=== PATIENT | female | born 1995 | race Asian ===

== ENCOUNTER 2017-09-29 13:40 | Emergency (ER) | payer OTHER ==
[~2017-09-29] VITALS: Ht 149.9 cm; Wt 59.1 kg
[2017-09-29 13:45] VITALS: TEMP 99.1
[2017-09-29] MEDS ORDERED: PRENATAL FORMU1 EAC3 PO (13:47)
[2017-09-29 14:38] LABS: BASO # 0.1 (0.0-0.2); BASO % 0.6 % (0.0-2.0); EOS # 0.1 (0.0-0.7); EOS % 1.5 % (0-4.0); GRAN # 5.7 (1.4-6.5); GRAN % 65.5 % (42.2-75.2); HEMATOCRIT 41.1 % (37.0-47.0); HEMOGLOBIN 13.4 g/dl (12.5-16.0); LYMPH # 1.9 (1.2-3.4); LYMPH % 22.2 % (20.0-51.0); MEAN CELL VOLUME 83 fl (80.0-100.0); MEAN CORPUSCULAR HEMOGLOBIN 27 pg (27.0-31.0); MEAN CORPUSCULAR HGB CONC 33 g/dl (33.0-37.0); MEAN PLATELET VOLUME 11.3 fl (7.4-10.4); MONO # 0.9 (0.1-0.6); MONO % 9.9 % (1.7-9.3); PLATELET COUNT 250 K/mm3 (130-400); RED BLOOD COUNT 4.94 M/mm3 (4.10-5.30); REDCELL DISTRIBUTION WIDTH-CV 13.9 % (11.5-14.5)
[2017-09-29 16:06] LABS: COLLECTION METHOD CLEAN CATCH
[2017-09-29 16:15] LABS: ALBUMIN 4.4 gm/dL (3.5-5.0); BILIRUBIN,TOTAL 0.3 mg/dL (0.0-1.0); CALCIUM 9.3 mg/dL (8.4-10.2); CREATININE, serum 0.62 mg/dL (0.52-1.25); POTASSIUM 4.4 mmol/L (3.4-5.0)
[2017-09-29 16:19] LABS: MUCOUS Present /lpf; URINE BACTERIA None Seen /hpf; URINE RBC 0-2 /hpf
[2017-09-29 16:20] LABS: PH 6 (5-8); URINE APPEARANCE Hazy; URINE BILIRUBIN Negative (NEGATIVE); URINE BLOOD Negative (NEGATIVE); URINE COLOR Yellow; URINE GLUCOSE Negative (NEGATIVE); URINE KETONE Negative (NEGATIVE); URINE LEUKOCYTE ESTERASE Negative (NEGATIVE); URINE NITRATE Negative (NEGATIVE); URINE PROTEIN(semi-quant) Negative (NEGATIVE); URINE UROBILINOGEN Negative (NEGATIVE)
[2017-09-29 16:43] VITALS: BP 94/76; PULSE 79
== END 2017-09-29 16:49 | disposition home or self-care (01) ==
LOC: COL.ER 13:40
PROVIDERS: Emergency Medicine
DX: O26.851 Spotting complicating pregnancy, first trimester (principal); Z3A.08 8 weeks gestation of pregnancy

== ENCOUNTER 2018-05-08 08:53 | Inpatient (IN) | payer OTHER ==
[2018-05-08] VITALS (49 sets, daily range): BP systolic 79–131; BP diastolic 8–88; PULSE 63–120; TEMP 97.6–98.9
[~2018-05-08] VITALS: Ht 149.9 cm; Wt 72.7 kg
[~2018-05-08 08:53] MED LIST: PRENATAL FORMU1 EAC3 PO
--- NOTE | 2018-05-08 08:55 | NUR ---
Pt arrives on unit ambulatory with spouse and MIL. G5L4 at 38.3 weeks gestation for SROM of clear fluid at 0700. Pt changed into clean gown. EFM and toco applied. VSS. Pt reports good movement. Denies vaginal bleeding and regular contractions. Amniotest positive. SVE per this RN /-2. Admission assessment completed. Dr. Luevano notified. Orders for admission. IV started in LW. Labs drawn. LR infusing. Consents signed. Pt updated on POC. Safety reviewed. No questions or concerns at this time. 0947-Reactive FHR strip obtained. Pt taken off monitors and up to BB.
[2018-05-08 10:16] LABS: BASO % 0.4 % (0.0-2.0); EOS # 0.4 (0.0-0.7); GRAN # 3.9 (1.4-6.5); GRAN % 56.5 % (42.2-75.2); LYMPH # 1.8 (1.2-3.4); LYMPH % 25.2 % (20.0-51.0); MEAN CORPUSCULAR HGB CONC 30 g/dl (33.0-37.0); MONO # 0.9 (0.1-0.6); MONO % 12.5 % (1.7-9.3); PLATELET COUNT 219 K/mm3 (130-400); RED BLOOD COUNT 4.83 M/mm3 (4.10-5.30); REDCELL DISTRIBUTION WIDTH-CV 18.5 % (11.5-14.5)
[2018-05-08 10:27] LABS: HEMATOCRIT 31.9 % (37.0-47.0); HEMOGLOBIN 9.5 g/dl (12.5-16.0); MEAN CORPUSCULAR HEMOGLOBIN 20 pg (27.0-31.0)
[2018-05-08 10:28] LABS: MEAN CELL VOLUME 66 fl (80.0-100.0)
--- NOTE | 2018-05-08 18:45 | NUR ---
Pt reports "i'm not really feeling the contractions"
--- NOTE | 2018-05-08 20:00 | NUR ---
Pt reports "really starting to feel the contractions" Pt instructed to notify staff if vaginal pressure, urge to push, or any other changes noted, verbalizes understanding.
--- NOTE | 2018-05-08 20:25 | NUR ---
SVE as noted, pt reports increasing discomfort, requests epidural. Anesthesai notified.
--- NOTE | 2018-05-08 20:50 | NUR ---
Zunilda ELEVATOR STARTER into room for epidural placement. Pt to edge of bed. See anesthesia notes for placement and dosing documentation.
--- NOTE | 2018-05-08 21:57 | NUR ---
FHT's with loss of signal/deceleration t0 60's, gradual return to baseline over 2 minutes with SVE and position change.
--- NOTE | 2018-05-08 23:08 | NUR ---
FHT's with variables to 70's with pushing, rapid return to baseline by end of contraction. Pushing well.
--- NOTE | 2018-05-08 23:20 | NUR ---
Dr Luevano into room, pt set up for delivery. [address]uevano, nuchal cord X 1 noted.
--- NOTE | 2018-05-08 23:40 | NUR ---
Placenta delivers spont and intact with 3 vessell cord, Pitocin gtt to bolus rate. Pt and spouse loving and excited about and delivery.
[2018-05-09] VITALS (12 sets, daily range): BP systolic 95–109; BP diastolic 58–77; PULSE 60–80; TEMP 97.8–98.2
--- NOTE | 2018-05-09 04:15 | NUR ---
Up to bathroom with careful steady gait, voids good amount, performs own pericare after instruction, clean gown on and ambulates to room.
--- NOTE | 2018-05-09 10:42 | NUR ---
Initial visit; Parents thanked Engineering Secretary for offering congratulations and God's blessings for the of their son. Engineering Secretary thanked family for choosing [facility].
[2018-05-10 08:20] VITALS: BP 97/65; PULSE 66; TEMP 98
[2018-05-10] MEDS ORDERED: MOTRIN 800800 MG/TAB PO (10:11)
== END 2018-05-10 15:00 | disposition home or self-care (01) | DRG 806 ==
LOC: LDRO 08:53 → LDR 09:00 → LDRO 09:51 → LDR 09:52 → OB 09:52
PROVIDERS: Student in an Organized Health Care Education/Training Program; ADMIT Obstetrics & Gynecology
PROC: 10E0XZZ Delivery of Products of Conception, External Approach (ICD-10-PCS; principal; 2018-05-08)
DX: O24.420 Gestational diabetes mellitus in childbirth, diet controlled (principal); O98.32 Other infections with a predominantly sexual mode of transmission complicating childbirth; Z37.0 Single live birth; Z3A.38 38 weeks gestation of pregnancy; O99.02 Anemia complicating childbirth; D64.9 Anemia, unspecified; O69.81X0 Labor and delivery complicated by cord around neck, without compression, not applicable or unspecified
CPT/HCPCS: J2405; J2590; J2795; J7120

== ENCOUNTER 2018-10-30 16:23 | Emergency (ER) | payer OTHER ==
[~2018-10-30] VITALS: Ht 149.9 cm; Wt 66.8 kg
[~2018-10-30 16:23] MED LIST changes: +MOTRIN 800800 MG/TAB PO
[2018-10-30 16:30] VITALS: TEMP 98.4
[2018-10-30 17:00] LABS: COLLECTION METHOD CLEAN CATCH
[2018-10-30 17:11] LABS: MUCOUS Present /lpf; PH 5 (5-8); SQUAMOUS EPITHELIAL 0-2 /hpf; URINE APPEARANCE Clear; URINE BACTERIA None Seen /hpf; URINE BILIRUBIN Negative (NEGATIVE); URINE BLOOD 3+ (NEGATIVE); URINE COLOR Yellow; URINE GLUCOSE Negative (NEGATIVE); URINE KETONE Negative (NEGATIVE); URINE LEUKOCYTE ESTERASE Negative (NEGATIVE); URINE NITRATE Negative (NEGATIVE); URINE PROTEIN(semi-quant) Negative (NEGATIVE); URINE RBC >50 /hpf; URINE UROBILINOGEN Negative (NEGATIVE)
[2018-10-30 18:18] LABS: BASO # 0.1 (0.0-0.2); BASO % 0.6 % (0.0-2.0); EOS # 0.3 (0.0-0.7); EOS % 3.3 % (0-4.0); GRAN # 4.6 (1.4-6.5); GRAN % 58.9 % (42.2-75.2); HEMOGLOBIN 11.4 g/dl (12.5-16.0); LYMPH # 2.2 (1.2-3.4); MEAN CELL VOLUME 74 fl (80.0-100.0); MEAN CORPUSCULAR HEMOGLOBIN 23 pg (27.0-31.0); MEAN CORPUSCULAR HGB CONC 31 g/dl (33.0-37.0); MONO # 0.7 (0.1-0.6); MONO % 8.9 % (1.7-9.3); PLATELET COUNT 298 K/mm3 (130-400); RED BLOOD COUNT 4.95 M/mm3 (4.10-5.30); REDCELL DISTRIBUTION WIDTH-CV 15.5 % (11.5-14.5)
[2018-10-30 18:20] LABS: HEMATOCRIT 36.5 % (37.0-47.0)
[2018-10-30 19:05] VITALS: BP 100/67
[2018-10-30 19:15] VITALS: PULSE 84
== END 2018-10-30 19:13 | disposition home or self-care (01) ==
LOC: COL.ER 16:23
PROVIDERS: Emergency Medicine; Nurse Practitioner
DX: O46.91 Antepartum hemorrhage, unspecified, first trimester (principal); Z3A.00 Weeks of gestation of pregnancy not specified